=== PATIENT | male | born 1990 | race Hispanic/Latino ===

== ENCOUNTER 2019-05-30 09:39 | Emergency (ER) | payer OTHER, SELFPAY ==
[2019-05-30 09:56] VITALS: BP 130/76; PULSE 73; RESP 16; TEMP 36.3; O2SAT 100
--- NOTE | 2019-05-30 10:27 | PC.NURSE ---
Pt up to desk asking how much longer the wait will be. Explained that the rooms are full, but that in approx 1/2 hr we will be opening another area and an additional 8 rooms will be available. States Oh my GOD, I cannot wait any longer with this pain. I'm going to another ED . Amb to exit without difficulty.
== END 2019-05-30 10:27 | disposition left against medical advice (07) ==
LOC: ANHED 10:47
DX: K03.81 Cracked tooth (principal)
CPT/HCPCS: 99199